=== PATIENT | female | born 1970 | race Caucasian/White ===

== ENCOUNTER 2019-09-24 10:55 | Emergency (ER) | payer OTHER ==
[2019-09-24 11:16] VITALS: RESP 18
--- NOTE | 2019-09-24 11:17 | ED ---
General Adult HPI - General Chief complaint: Extremity Injury, Lower Stated complaint: rt ankle injury Time Seen by Provider: 09/24/19 11:10 Source: patient Mode of arrival: wheelchair Limitations: no limitations - History of Present Illness Initial comments: Patient is a 49-year-old female presenting to the emergency department with a chief complaint of an ankle fracture. Patient was in [place] 2 days ago when she rolled her right ankle and went to the ED there. Patient states she was diagnosed with a trimalleolar fracture that was displaced. Patient states reduced the fracture to ED and a splint was applied. States she came back to [place] and was advised to follow-up with air cargo specialist. Patient does not have a primary care and doesn't know where to go. Patient states the pain is well controlled with taking Percocet as prescribed by the ED in [place]. Patient denies any night sweats fevers and chills. States she is ambulating with crutches at home. - Related Data Allergies Allergy/AdvReac Type Severity Reaction Status Date / Time Penicillins Allergy Unknown Verified 09/24/19 11:16 Review of Systems ROS Statement: Those systems with pertinent positive or pertinent negative responses have been documented in the HPI. ROS Other: All systems not noted in ROS Statement are negative. Past Medical History Past Medical History: Hypertension History of Any Multi-Drug Resistant Organisms: None Reported Past Surgical History: Cholecystectomy, Uterine Ablation Additional Past Surgical History / Comment(s): melanoma removal, vaginal mesh Past Psychological History: Anxiety, Depression Smoking Status: Current some day smoker Past Alcohol Use History: Occasional Past Drug Use History: Marijuana General Exam Limitations: no limitations General appearance: alert, in no apparent distress, obese Head exam: Present: atraumatic, normocephalic, normal inspection Eye exam: Present: normal appearance Pupils: Present: normal accommodation ENT exam: Present: normal exam Neck exam: Present: normal inspection, full ROM Respiratory exam: Present: normal lung sounds bilaterally Cardiovascular Exam: Present: regular rate, normal rhythm, normal heart sounds Extremities exam: Present: other (Unable to perform vascular exam to splint being placed.). Absent: normal inspection (Posterior splint applied on the right lower extremity.) Back exam: Present: normal inspection, full ROM Neurological exam: Present: alert, oriented X3 Psychiatric exam: Present: normal affect, normal mood Skin exam: Present: warm, dry, intact, normal color Course Vital Signs 09/24/19 09/24/19 11:13 13:37 Temperature 97.3 F L 97.7 F Pulse Rate 72 57 L Respiratory 18 18 Rate Blood Pressure 115/74 118/76 O2 Sat by Pulse 96 96 Oximetry Medical Decision Making - Medical Decision Making Patient is a 49-year-old female presenting to emergency Department with a chief complaint of an ankle fracture. Patient was diagnosed with a trimalleolar ankle fracture 2 days ago in [place] and was placed in a splint. I contacted Ximena, the orthopedic physician housekeeper and laundry assistant who suggested the patient follow-up on Friday with . Imaging was reviewed. She also requested CT imaging a right lower extremity. CT was obtained confirming the fracture. Patient ready has enough analgesia at home. Patient advised to follow-up with on Friday . Return parameters were thoroughly discussed with patient is in the setting agreeable. Case discussed with physician. Disposition Clinical Impression: Trimalleolar fracture of ankle, closed Disposition: HOME SELF-CARE Condition: Stable Instructions (If sedation given, give patient instructions): Ankle Fracture (DC) Additional Instructions: Please follow up with an air cargo specialist. Return to emergency department if symptoms worsen. Is patient prescribed a controlled substance at d/c from ED?: No Referrals: None,Stated [Primary Care Provider] - 1-2 days Flash Rodriguez MD [Medical Doctor] - 1-2 days Time of Disposition: 13:15
--- NOTE | 2019-09-24 13:07 | CT ---
EXAMINATION TYPE: CT lower extremity RT wo con DATE OF EXAM: 09/24/2019 COMPARISON: Radiograph 09/22/2019 HISTORY: 49-year-old female trimalleolar fracture after fall, foot/ankle injury TECHNIQUE: Contiguous axial scanning of the right foot without IV contrast. Coronal and sagittal gianni nstructions performed. 3-D reconstructions generated on a dedicated independent workstation. CT DLP: 156.5 mGycm Automated exposure control for dose reduction was used. FINDINGS: Trimalleolar ankle fracture is redemonstrated. Oblique fracture distal fibula with 6 mm of posterior displacement. Tiny nondisplaced fracture from the posterior malleolus measuring 9 mm. Transverse fracture at the base of the medial malleolus with minimal distraction and minimal 2 mm of anterior displacement. Corticated 5 mm bone fragments are interposed within the joint space at the level of the medial talar dome and additional 1 cm ovoid loose body interposed along the lower syndesmosis. There is eccentric joint space narrowing along the lateral tibiotalar joint with subtle irregularity of the subchondral bone plate of the lateral talar dome, refer to coronal image 55 and 56. Circumferential soft tissue swelling at the ankle. Underlying tibiotalar and posterior subtalar joint effusions. Underlying degenerative change at the first MTP joint. Small plantar calcaneal spur. IMPRESSION: 1. TRIMALLEOLAR ANKLE FRACTURES WITH CIRCUMFERENTIAL SOFT TISSUE SWELLING AN UNDERLYING JOINT EFFUSIO N FOLLOWS: 2. Oblique fracture distal fibula with 6 mm of posterior displacement. 3. Tiny nondisplaced posterior malleolus fracture measuring 9 mm. 4. Transverse fracture at the base of the medial malleolus with minimal distraction and minimal 2 mm of anterior displacement. 5. Small corticated 5 mm loose bodies interposed within the joint space at the level of the medial ta lar dome and a 1 cm ovoid loose body interposed along the lower syndesmosis. 6. Underlying tibiotalar joint OA along the lateral aspect of the joint with subtle irregularity of t he subchondral bone plate of the lateral talar dome.
[2019-09-24 13:40] VITALS: BP 118/76; PULSE 57; TEMP 97.7
== END 2019-09-24 13:44 | disposition home or self-care (01) ==
LOC: EC 10:55
DX: S82.854A Nondisplaced trimalleolar fracture of right lower leg, initial encounter for closed fracture (principal); I10 Essential (primary) hypertension; F17.200 Nicotine dependence, unspecified, uncomplicated; Z88.0 Allergy status to penicillin; Z85.820 Personal history of malignant melanoma of skin; X50.1XXA Overexertion from prolonged static or awkward postures, initial encounter
CPT/HCPCS: 99283

== ENCOUNTER 2019-09-30 08:38 | Day surgery (SDC) | payer OTHER ==
[2019-09-29 08:45] VITALS: BMI 35.4
[~2019-09-30 08:38] MED LIST: DEXAMETHASONE SOD PHOSPHATE 10 MG/ML 1 ML VIAL IV ONE; LACTATED RINGERS 1,000 ML IV SCH; LIDOCAINE 1% (10MG/ML) FOR IV START INTRADERMA PRN; MIDAZOLAM 2 MG/2 ML VIAL IV PRN; fentaNYL (PF) 50 MCG/ML 2 ML AMP IV PRN
[2019-09-30] MEDS ORDERED: ONDANSETRON 4 MG/2 ML VIAL IVP ONE (09:38)
[2019-09-30] MEDS ORDERED: SCOPOLAMINE 1.5MG/72HR PATCH TRANSDERM ONE (09:39)
[2019-09-30] MEDS: fentaNYL (PF) 50 MCG/ML 2 ML AMP IVP PRN ×4 (09:42→13:57)
--- NOTE | 2019-09-30 10:32 | P.ANPRN ---
Procedure Note - Anesthesia - Nerve Block Performed Right Adductor Canal Single Time Out Performed: Yes (941) Date of Procedure: 09/30/19 Procedure Start Time: 09:42 Procedure Stop Time: 09:46 Location of Patient: PreOp Indication: Acute Post-Operative Pain, Requested by Surgeon Specifically requested for management of pain by DrTianna: Flash Rodriguez Sedation Type: Sedate with meaningful contact maintained Preparation: Sterile Prep Position: Supine Catheter: None Needle Types: Pajunk Needle Gauge: 20 Ultrasound used to visualize needle placement: Yes Ultrasound used to observe medication spread: Yes Injectate: 0.5% Ropivacaine (see comment for volume) (15cc) Blood Aspirated: No Pain Paresthesia on Injection Noted: No Resistance on Injection: Normal Image Stored and Saved: Yes Events: Uneventful and Well Tolerated Right Popliteal Single Time Out Performed: Yes (941) Date of Procedure: 09/30/19 Procedure Start Time: 09:47 Procedure Stop Time: 09:49 Location of Patient: PreOp Indication: Acute Post-Operative Pain, Requested by Surgeon Specifically requested for management of pain by DrTianna: Flash Rodriguez Sedation Type: Sedate with meaningful contact maintained Preparation: Sterile Prep Position: Left Lateral Ultrasound used to visualize needle placement: Yes Ultrasound used to observe medication spread: Yes Injectate: 0.5% Ropivacaine (see comment for volume) (15cc) Blood Aspirated: No Pain Paresthesia on Injection Noted: No Resistance on Injection: Normal Image Stored and Saved: Yes Events: Uneventful and Well Tolerated
[2019-09-30] MEDS ORDERED: MIDAZOLAM 2 MG/2 ML VIAL ONE (11:51)
[2019-09-30] MEDS ORDERED: fentaNYL (PF) 50 MCG/ML 2 ML AMP ONE (11:51)
[2019-09-30] MEDS ORDERED: KETOROLAC 30 MG/ML 1 ML VIAL ONE (11:51)
[2019-09-30] MEDS ORDERED: LIDOCAINE 1% INJ 10MG/ML (20 ML MDV) ONE (11:51)
[2019-09-30] MEDS ORDERED: ROPIVACAINE 5 MG/ML 30 ML VIAL ONE (11:51)
[2019-09-30] MEDS ORDERED: PROPOFOL 10 MG/ML 20 ML VIAL IV ONE (11:51)
--- NOTE | 2019-09-30 13:27 | P.OP ---
Date of Procedure: 09/30/19 Preoperative Diagnosis: 1. Displaced right trimalleolar ankle fracture 2. Current every day cigarette smoker Postoperative Diagnosis: Same Procedure(s) Performed: 1. Open reduction internal fixation right medial lateral malleolus, nonoperative management small posterior malleolus avulsion 2. Application of joint stress by physician for radiography, right ankle 3. Application of short leg splint by physician, right ankle Anesthesia: KERWIN, regional Surgeon: Flash Rodriguez Region Manager #1: Bhavani Albright Estimated Blood Loss (ml): 10 IV fluids (ml): 1,000 Pathology: none sent Condition: stable Disposition: PACU Indications for Procedure: Patient is a very pleasant 49-year-old female with a medical history significant for cigarette smoking who sustained an ankle fracture while vacationing in [place]. She was seen in emergency department in [place] were closed reduction and splint was applied. She came back to [place] was seen in our emergency room. She is referred to my office. The patient was diagnosed with displaced medial lateral malleolus fractures and a small posterior malleolus avulsion fracture. We discussed the need for operative fixation. We discussed potential risks and complications of surgery including but not limited to risk of anesthesia, infection, delayed wound healing, nonunion, malunion, hardware failure, now reduction of the ankle mortise or syndesmosis, post radical a rthritis, late hardware failure, DVT, PE, other medical complications, and inability to regain preinjury level of function, and possibly loss of life or limb. The patient voiced understanding of these potential complications and also analysis other less common Location for possible. She provided her verbal and written consent to go forward with surgery. She also understands that she has a much higher risk of having a competition due to her cigarette smoking. She was strongly encouraged to quit smoking. Description of Procedure: The patient was identified and proper holding and the correct right ankle was marked with my initials. I reviewed the consent form with the patient and all her questions were answered. A block was given by anesthesia in preoperative h olding. The splint was taken down and she was found to have wrinkling of the skin. The patient was then brought back to the operating room by anesthesia. She was positioned on the OR table where a general anesthetic and preoperative antibiotics were given. The patient was then positioned on the OR table for surgery. A bump was placed under the right buttock internally rotating the leg to neutral. The left leg was secured to the table with foam. A ramp was placed under the right leg to facilitate imaging. The right leg was then prepped and draped in the standard sterile fashion. A timeout was performed identifying the correct patient, operative extremity, and procedure. The patient's leg was then elevated, exsanguinated with an Esmarch bandage, and the tourniquet was up to 250 mmHg. I began by outlining a straight lateral incision to the distal fibula. Skin incision was made a scalpel dissection was carried down carefully through subcu tennis tissue with tenotomy scissors. The fracture site was identified, debrided, and carefully reduced with a [id number] reduction clamp. I placed a 6-hole one third tubular plate over the posterior border of the fibula as an anti-glide device. 2 nonlocking 3.5 mm screws were placed proximal to the fracture, a nonlocking 3.5 mm screw was placed distal to the fracture, and a nonlocking 2.7 mm lag screw was placed through the plate across the fracture generated excellent compression. Attention was then turned to the medial malleolus. An incision was made directly over the anterior colliculus. Dissection was carried down to the fracture. The fracture site was debrided. The fracture site was reduced and held with a [id number]-[id number] reduction clamp. Due to the small size of the fragment and nonlocking 2.7 mm screw measuring 55 mm was placed across the fracture generating excellent compression. A manual external rotation stress x-ray showed no widening of the medial clear space incisura. I interpreted this as a stable ankle construct not requiring syndesmotic fixation. Both wounds were thoroughly irrigated and closed in layers. A sterile dressing was applied. A bulky Rivera splint was placed with the ankle in neutral. The patient was awoken from her anesthetic, transferred from the OR table to a gurney, and brought to recovery him procedure well. Bhavani Albright PA-C was required as a skilled botany laboratory assistant for patient positioning, surgical exposure, retraction, placement of hardware, and application of splint. Plan: The patient is going to discharge home as an outpatient. She is given strict nonweightbearing on her right ankle. She is to leave her splint on at all times. She'll follow-up in 2 weeks for splint removal, wound check, and nonweightbearing x-rays of the ankle. Be given aspirin 325 mg daily for DVT prophylaxis.
--- NOTE | 2019-09-30 13:28 | XR ---
EXAMINATION TYPE: XR ankle limited RT DATE OF EXAM: 09/30/2019 COMPARISON: NONE TECHNIQUE: Three views submitted HISTORY: Post op FINDINGS: There is postsurgical change of the ankle in near anatomic alignment. There is soft tissue edema and emphysema. IMPRESSION: 1. Postoperative change. Appears in near-anatomic alignment
--- NOTE | 2019-09-30 13:29 | FL ---
EXAMINATION TYPE: FL guidance operating room DATE OF EXAM: 09/30/2019 HISTORY: Fluoroscopy time 18 seconds of fluoroscopy provided. IMPRESSION: 1. Fluoroscopy time.
[2019-09-30] MEDS ORDERED: LACTATED RINGERS 1,000 ML IV ONE (14:00)
[2019-09-30 14:04] VITALS: TEMP 97
[2019-09-30 14:31] VITALS: PULSE 80
[2019-09-30 14:47] VITALS: BP 159/81; RESP 16
== END 2019-09-30 15:04 | disposition home or self-care (01) ==
LOC: OR 08:38
PROVIDERS: ATTEND Orthopaedic Surgery
DX: S82.851A Displaced trimalleolar fracture of right lower leg, initial encounter for closed fracture (principal); F17.210 Nicotine dependence, cigarettes, uncomplicated; I10 Essential (primary) hypertension; E78.5 Hyperlipidemia, unspecified; F32.9 Major depressive disorder, single episode, unspecified; J45.909 Unspecified asthma, uncomplicated; Z79.899 Other long term (current) drug therapy; Z79.891 Long term (current) use of opiate analgesic; Z97.3 Presence of spectacles and contact lenses; Z88.0 Allergy status to penicillin; Z90.49 Acquired absence of other specified parts of digestive tract; Z98.890 Other specified postprocedural states; Z85.820 Personal history of malignant melanoma of skin; W17.89XA Other fall from one level to another, initial encounter; X50.1XXA Overexertion from prolonged static or awkward postures, initial encounter
CPT/HCPCS: 93005; 27814; 64447; 64450; 76942; 84132; 84703; 73600; C1713; J2250; J1100; J0690; J2405; J2001; J3010; J1885; J2795; J2704; 64445

== ENCOUNTER 2023-04-11 11:21 | Emergency (ER) | payer OTHER ==
[2023-04-11] MEDS ORDERED: DIPH,PERTUS(ACELL)TETVAC-LF 0.5 ML VIAL IM ONE (12:21)
[2023-04-11] MEDS ORDERED: KETOROLAC 15 MG/ML 1 ML VIAL IM STA (12:21)
--- NOTE | 2023-04-11 12:49 | ED ---
General Adult HPI - General Chief complaint: Extremity Injury, Lower Stated complaint: Left foot injury Source: patient Mode of arrival: ambulatory Limitations: no limitations - History of Present Illness Initial comments: 52-year-old female presents to the ED with a chief complaint of foot pain. Patient states last night was carrying a box with a candle stick and it. States that the box with a candle stick actually fell landing on her foot. States that the candle stick punctured the top of her foot due to this. States that since last night, he notes worsening pain of the foot especially with ambulation. Tetanus status unknown. Denies chest pain or shortness of breath. No other complaints. - Related Data Home Medications Medication Instructions Recorded Confirmed ALPRAZolam [Xanax] 2 mg PO HS 09/29/19 09/30/19 Albuterol Inhaler [Ventolin Hfa 1 - 2 puff INHALATION RT-Q6H PRN 09/29/19 09/30/19 Inhaler] Atenolol/Chlorthalidone 1 each PO HS 09/29/19 09/30/19 [Atenolol-Chlorthalidone 50-25] Atorvastatin [Lipitor] 10 mg PO DIRECTED 09/29/19 09/30/19 Hydrocodone/Acetaminophen [Gaston 1 tab PO Q4-6H PRN 09/29/19 09/30/19 10-325] Ibuprofen [Motrin] 800 mg PO Q8H PRN 09/29/19 09/30/19 Sertraline [Zoloft] 50 mg PO HS 09/29/19 09/30/19 Terbinafine [LamISIL] 250 mg PO DAILY 09/29/19 09/30/19 Previous Rx's Medication Instructions Recorded Aspirin 325 mg PO DAILY #14 tab 09/30/19 HYDROcodone/APAP 10-325MG [Gaston 1 tab PO Q4HR PRN 3 Days #40 tab 09/30/19 10-325] Allergies Allergy/AdvReac Type Severity Reaction Status Date / Time Penicillins Allergy Unknown Verified 04/11/23 11:41 Review of Systems ROS Statement: Those systems with pertinent positive or pertinent negative responses have been documented in the HPI. ROS Other: All systems not noted in ROS Statement are negative. Past Medical History Past Medical History: Asthma, Cancer, Hyperlipidemia, Hypertension, Osteoarthritis (OA), Skin Disorder Additional Past Medical History / Comment(s): fx rt ankle 09/24/19, hx melanoma, splint cast on rt ankle History of Any Multi-Drug Resistant Organisms: None Reported Past Surgical History: Cholecystectomy, Uterine Ablation Additional Past Surgical History / Comment(s): melanoma removal from left thigh, trans-vaginal mesh Past Anesthesia/Blood Transfusion Reactions: Motion Sickness Past Psychological History: Anxiety, Depression Smoking Status: Never smoker Past Alcohol Use History: Occasional Past Drug Use History: Marijuana - Past Family History Mother Family Medical History: Cancer Additional Family Medical History / Comment(s): ovarian General Exam Limitations: no limitations General appearance: alert, in no apparent distress Respiratory exam: Present: normal lung sounds bilaterally Cardiovascular Exam: Present: regular rate, normal rhythm Extremities exam: Present: other (Strength and Sensation at the feet equal and intact bilaterally. DP/PT pulses 2+. Puncture wound at the dorsal aspect of the foot measuring approximately 2 mm.) Neurological exam: Present: alert, oriented X3 Skin exam: Present: warm, dry Course Vital Signs 04/11/23 11:37 Temperature 98.6 F Pulse Rate 81 Respiratory 20 Rate Blood Pressure 115/76 O2 Sat by Pulse 98 Oximetry Medical Decision Making - Medical Decision Making Was pt. sent in by a medical professional or institution (KIMBERLI Garcia, BULL GANG SUPERVISOR, urgent care, hospital, or usp...) When possible be specific @ -No Did you speak to anyone other than the patient for history (EMS, parent, family, police, friend...)? What history was obtained from this source @ -No Did you review nursing and triage notes (agree or disagree)? Why? @ -I reviewed and agree with nursing and triage notes Were old charts reviewed (outside hosp., previous admission, EMS record, old EKG, old radiological studies, urgent care reports/EKG's, usp records)? Report findings @ -No old charts were reviewed Differential Diagnosis (chest pain, altered mental status, abdominal pain women, abdominal pain men, vaginal bleeding, weakness, fever, dyspnea, syncope, headache, dizziness, GI bleed, back pain, seizure, CVA, palpatations, mental health, musculoskeletal)? @ -Differential Musculoskeletal Muscular strain, contusion, ligament sprain, fracture, arthritis, septic arthritis, bursitis, cellulitis, muscle spasm, nerve compression, DVT, arterial occlusion, herpes zoster, electrolyte abnormality, tumor.... This is not meant to be in all inclusive list EKG interpreted by me (3pts min.). @ -None X-rays interpreted by me (1pt min.). @ -X-ray interpreted by me. X-ray shows no acute findings. CT interpreted by me (1pt min.). @ -None done U/S interpreted by me (1pt. min.). @ -None done What testing was considered but not performed or refused? (CT, X-rays, U/S, labs)? Why? @ -None What meds were considered but not given or refused? Why? @ -None Did you discuss the management of the patient with other professionals (professionals i.e. DrTianna, PA, BULL GANG SUPERVISOR, lab, RT, psych nurse, nephrology social worker, student accounts coordinator, teacher, ict help desk officer, special education case manager)? Give summary @ -No Was smoking cessation discussed for >3mins.? @ -No Was critical care preformed (if so, how long)? @ -No Were there social determinants of health that impacted care today? How? (Homelessness, low income, unemployed, alcoholism, drug addiction, transportation, low edu. Level, literacy, decrease access to med. care, detention, rehab)? @ -No Was there de-escalation of care discussed even if they declined (Discuss DNR or withdrawal of care, Hospice)? DNR status @ -No What co-morbidities impacted this encounter? (DM, HTN, Smoking, COPD, CAD, Cancer, CVA, ARF, Chemo, Hep., AIDS, mental health diagnosis, sleep apnea, morbid obesity)? @ -None Was patient admitted / discharged? Hospital course, mention meds given and route, prescriptions, significant lab abnormalities, going to OR and other pertinent info. @ -Discharge 52-year-old female presenting to the ED with chief complaint of foot injury. Imaging studies showed no acute findings. On exam, there is a punctate lesion however no evidence of infection. Patient had tetanus updated. Patient had improvement of pain with Toradol. Patient discharged home in stable condition. Advised supportive care. Advised follow-up with PCP as needed. Undiagnosed new problem with uncertain prognosis? @ -No Drug Therapy requiring intensive monitoring for toxicity (Heparin, Nitro, Insulin, Cardizem)? @ -No Were any procedures done? @ -No Diagnosis/symptom? @ -left foot pain Acute, or Chronic, or Acute on Chronic? @ -Acute Uncomplicated (without systemic symptoms) or Complicated (systemic symptoms)? @ -Uncomplicated Side effects of treatment? @ -No Exacerbation, Progression, or Severe Exacerbation? @ -No Poses a threat to life or bodily function? How? (Chest pain, [place], [place], pneumonia, PE, COPD, DKA, ARF, appy, cholecystitis, CVA, Diverticulitis, Homicidal, Suicidal, threat to staff... and all critical care pts) @ -No Disposition Clinical Impression: Left foot pain Disposition: HOME SELF-CARE Condition: Good Instructions (If sedation given, give patient instructions): Foot Contusion (ED) Additional Instructions: Please return to the Emergency Department if symptoms worsen or any other concerns. Is patient prescribed a controlled substance at d/c from ED?: No Referrals: Hansel Weinberg [Primary Care Provider] - 1-2 days Time of Disposition: 13:34
--- NOTE | 2023-04-11 12:57 | XR ---
EXAMINATION TYPE: XR foot complete LT DATE OF EXAM: 04/11/2023 CLINICAL HISTORY: pain TECHNIQUE: Frontal, lateral and oblique images of the left foot are obtained. COMPARISON: None. FINDINGS: There is no acute fracture/dislocation evident. The joint spaces appear within normal ricci its. The overlying soft tissue appears unremarkable. Plantar calcaneal spur noted. IMPRESSION: There is no acute fracture or dislocation. ICD 10 NO FRACTURE, INITIAL EVALUATION
[2023-04-11] MEDS ORDERED: IBUPROFEN 600 MG STARTER PACK 4 TAB BTL PO STA (13:34)
[2023-04-11 15:28] VITALS: BP 116/73; PULSE 66; RESP 18; TEMP 98
== END 2023-04-11 13:46 | disposition home or self-care (01) ==
LOC: EC 11:21
DX: M79.672 Pain in left foot (principal); E78.5 Hyperlipidemia, unspecified; F32.A Depression, unspecified; F41.9 Anxiety disorder, unspecified; I10 Essential (primary) hypertension; J45.909 Unspecified asthma, uncomplicated; M19.90 Unspecified osteoarthritis, unspecified site; F12.90 Cannabis use, unspecified, uncomplicated; Z79.899 Other long term (current) drug therapy; Z88.0 Allergy status to penicillin; Z90.49 Acquired absence of other specified parts of digestive tract; Z23 Encounter for immunization; W22.8XXA Striking against or struck by other objects, initial encounter
CPT/HCPCS: 73630; 90715; 99283; 90471; 96372; J1885